=== PATIENT | male | born 1940 | race Caucasian/White ===

== ENCOUNTER 2017-03-13 09:38 | Emergency (ER) | payer MEDICARE, BC ==
[~2017-03-13] VITALS: Ht 180.3 cm; Wt 116.3 kg
[2017-03-13 10:15] VITALS: BP 144/49
--- NOTE | 2017-03-13 10:55 | RAD ---
ANKLE RIGHT 3V History:injury, left foot pain, fall yesterday Comparison: None Findings:3 views of the left ankle are submitted. No acute osseous abnormality is identified. There is vascular calcification. Impression: 1.No acute osseous abnormality is identified.
[2017-03-13] MEDS ORDERED: HYDR-2758 PO (11:03)
--- NOTE | 2017-03-13 11:03 | PHYS DOC ---
Past History Past Medical History: High Cholesterol, Other Past Surgical History: Other Alcohol Use: None Drug Use: None Adult General Chief Complaint Chief Complaint: ANKLE PROBLEM HPI HPI 76-year-old male presenting the emergency department today with right ankle pain after injuring his ankle while walking. He reports sharp pain in his ankle with mild swelling. The pain is mild nonradiating intermittent and without alleviating factors. He denies pain in his foot. He denies pain in his knee. Review of systems is negative for chest pain shortness of breath abdominal pain fevers or chills. All other review of systems is negative unless otherwise noted in history of present illness. ED course: 76-year-old male presenting to the emergency department with right ankle pain. X-rays unremarkable. Patient after an Xu wrap. Patient provided crutches and ibuprofen for pain control. The patient was then discharged home in stable condition to follow up with their primary care physician over the next 2-3 days. They were to return if their symptoms worsened or if they were concerned for any reason. [id number] discharge instructions and return precautions were given. Patient's questions were answered to their satisfaction. Patient is comfortable plan. Review of Systems Review of Systems SEE ABOVE. Allergies Allergies Allergies Coded Allergies Type Severity Reaction Last Updated Verified Penicillins Allergy Unknown 03/13/17 Yes Physical Exam Physical Exam SEE ABOVE Constitutional: Well developed, well nourished, no acute distress, non-toxic appearance. [] HENT: Normocephalic, atraumatic, bilateral external ears normal, oropharynx moist, no oral exudates, nose normal. [] Eyes: PERRLA, EOMI, conjunctiva normal, no discharge. [] Neck: Normal range of motion, no tenderness, supple, no stridor. [] Cardiovascular:Heart rate regular rhythm, no murmur [] Lungs & Thorax: Bilateral breath sounds clear to auscultation [] Abdomen: Bowel sounds normal, soft, no tenderness, no masses, no pulsatile masses. [] Skin: Warm, dry, no erythema, no rash. [] Back: No tenderness, no CVA tenderness. [] Extremities: The patient's right lower extremity is warm and well perfused with palpable pulse. 2 second cap refill. Normal motor and sensory function of the foot. Mild swelling with pain to palpation along the anterior portion of the patient's ankle. Nontender foot. Nontender squeeze test. Normal range of motion the knee proximally. The remainder the extremities are unremarkable. Nontender normal range of motion. Neurologic: Alert and oriented X 3, normal motor function, normal sensory function, no focal deficits noted. [] Psychologic: Affect normal, judgement normal, mood normal. [] Current Patient Data Vital Signs Vital Signs Date Time Temp Pulse Resp B/P (MAP) Pulse Ox O2 Delivery O2 Flow Rate FiO2 03/13/17 10:15 98.6 92 20 96 Room Air EKG EKG [] Radiology/Procedures Radiology/Procedures [] Course & Med Decision Making Course & Med Decision Making Pertinent Labs and Imaging studies reviewed. (See chart for details) [] Dragon Disclaimer Dragon Disclaimer This electronic medical record was generated, in whole or in part, using a voice recognition dictation system. Departure Departure: Impression: Primary Impression: Right ankle pain Disposition: HOME, SELF-CARE Condition: STABLE Referrals: NON,STAFF (PCP) Patient Instructions: Ankle Sprain, RICE - Routine Care for Injuries Additional Instructions: Thank you for allowing us to participate in your care today. Followup with your primary care physician in 3 days if your symptoms do not improve. Call your Primary Doctor tomorrow and inform them of your visit today. If you do not have a primary care provider you can ask for a list of our primary care providers. Return to the emergency department you have any new or concerning findings. This should be evaluated by the primary care physician and any necessary consulting services for continued management within a few days after discharge. Return to emergency room if you have any new or concerning symptoms including but not limited to fever, chills, nausea, vomiting, intractable pain, any new rashes, chest pain, shortness of air, uncontrolled bleeding, difficulty breathing, and/or vision loss. You may have been prescribed medication that can change in your level of thinking and ability to operate machinery. These medications include hydrocodone and Ativan. Also, Benadryl has been known to do this as well. Be sure to check with your pharmacist and ask if the medications you've prescribed can affect your level of consciousness. I recommend not operating heavy machinery or driving while on medication such as these. Scripts Hydrocodone Bit/Acetaminophen (HYDROCODONE-APAP 5-325 ) 1 Each Tablet 1 TAB PO PRN Q6HRS Y for PAIN, #10 TAB 0 Refills Prov: RASTA PAN MD 03/13/17 RASTA PAN MD Mar 13, 2017 11:03
[2017-03-13] MEDS ORDERED: IBUPROFEN 400 MG TABLET. PO ONE (11:15)
== END 2017-03-13 11:45 | disposition home or self-care (01) ==
LOC: ER 09:38
DX: M25.571 Pain in right ankle and joints of right foot (principal); R22.41 Localized swelling, mass and lump, right lower limb; E78.00 Pure hypercholesterolemia, unspecified; Z88.0 Allergy status to penicillin; X58.XXXA Exposure to other specified factors, initial encounter; Y93.01 Activity, walking, marching and hiking; Y99.8 Other external cause status; Y92.89 Other specified places as the place of occurrence of the external cause
CPT/HCPCS: 73610; 99284